=== PATIENT | female | born 1950 | race Caucasian/White ===

== ENCOUNTER 2024-02-21 07:17 | Day surgery (SDC) | payer MEDICARE, BC, OTHER ==
[~2024-02-21] VITALS: Ht 160 cm; Wt 52.6 kg
[2024-02-21] MEDS ORDERED: VITA-148 PO (07:43)
[2024-02-21] MEDS ORDERED: ASCO250T20 PO (07:43)
[2024-02-21] MEDS ORDERED: OMEP10CASR PO (07:43)
[2024-02-21] MEDS ORDERED: VITATAB73 PO (07:43)
[2024-02-21] MEDS ORDERED: ROSU40TA63 PO (07:43)
[2024-02-21] MEDS ORDERED: FERR325T3 PO (07:43)
[2024-02-21] MEDS ORDERED: CO Q200C10 PO (07:43)
[2024-02-21] MEDS ORDERED: CVS1CHW58 PO (07:43)
[2024-02-21] MEDS ORDERED: OMEG10002 PO (07:43)
[2024-02-21] MEDS ORDERED: BUPR-70 PO (07:43)
[2024-02-21] MEDS ORDERED: CYCL-707 PO (07:43)
[2024-02-21] MEDS ORDERED: ACET1TAB37 PO (07:44)
[2024-02-21] MEDS ORDERED: [UNRECOGNIZED DRUG - OTHER] PO (07:44)
[2024-02-21] MEDS ORDERED: MIDAZOLAM INJ 2MG/2ML VIAL As Ordered ONE (07:49)
[2024-02-21] MEDS ORDERED: fentaNYL 100 MCG/2 ML INJECTION As Ordered ONE (07:49)
[2024-02-21] MEDS ORDERED: LIDOCAINE 3.5 % 1ML OPHTH TOPICAL GEL As Ordered ONE (08:06)
[2024-02-21] MEDS: LIDOCAINE 3.5 % 1ML OPHTH TOPICAL GEL OU ONE (08:12)
[2024-02-21] MEDS: LIDOCAINE 2% W/EPINEPHRINE 20ML VIAL **PRES FREE As Ordered ONE (08:22)
[2024-02-21] MEDS: TOBRADEX OPHTH OINT 3.5 GM As Ordered ONE (08:23)
[2024-02-21] MEDS: mitoMYcin 0.2 MG/VIAL KIT FOR OPHTHALMIC USE As Ordered ONE (08:23)
[2024-02-21] MEDS: LIDOCAINE 1% SDV 5ML VIAL As Ordered ONE (08:24)
[2024-02-21 08:40] VITALS: BP 130/67; TEMP 96.4; O2SAT 98
== END 2024-02-21 08:59 | disposition home or self-care (01) ==
LOC: M SDC 07:17
PROVIDERS: ATTEND Ophthalmology
DX: H40.812 Glaucoma with increased episcleral venous pressure, left eye (principal)
CPT/HCPCS: 66183; C1783; J2250; J3010; J7315

== ENCOUNTER 2024-11-19 09:38 | Day surgery (SDC) | payer MEDICARE, BC ==
[~2024-11-19] VITALS: Ht 157.5 cm; Wt 52.8 kg
[~2024-11-19 09:38] MED LIST: ACET1TAB37 PO; ASCO250T20 PO; BENZ200C70 PO; BUPR-70 PO; CO Q200C10 PO; CVS1CHW58 PO; CYCL-707 PO; FERR325T3 PO; LEVO50TA5 PO; MELA10TA2 PO; OMEG10002 PO; OMEP10CASR PO; PHENYLEPHRINE 10% OPHTH SOL 5ML OS PRN; ROPI0.5T33 PO; ROSU40TA81 PO; VITA-148 PO; VITATAB73 PO; [UNRECOGNIZED DRUG - OTHER] PO
[2024-11-19] MEDS: LIDOCAINE 3.5 % 1ML OPHTH TOPICAL GEL OU ONE (10:00)
[2024-11-19] MEDS: OFLOXACIN 0.3 % (OCUFLOX) OPTH SOL 5ML OS ONE (10:00)
[2024-11-19] MEDS: PHENYLEPHRINE 2.5% OPHTH SOL 2ML OS SCH (11:11)
[2024-11-19] MEDS: TROPICAMIDE 1% OPHTH SOLN 15ML OS SCH (11:11)
[2024-11-19] MEDS: CYCLOPENTOLATE 1% OPHTH SOLN 2ML BTL OS SCH (11:11)
[2024-11-19] MEDS ORDERED: MIDAZOLAM INJ 2MG/2ML VIAL As Ordered ONE (11:12)
[2024-11-19] MEDS ORDERED: fentaNYL 100 MCG/2 ML INJECTION As Ordered ONE (11:12)
[2024-11-19] MEDS: BSS IRRIG/VANCO(10MG)/TOBRA(5MG)/EPINEPH(1:1000-0.5CC)500ML BAG-ORONLY As Ordered ONE (11:56)
[2024-11-19] MEDS: LIDOCAINE 1% SDV 5ML VIAL As Ordered ONE (11:56)
[2024-11-19] MEDS: ACETYLCHOLINE OPHTH SOLN 1% 2ML (MIOCHOL-E) As Ordered ONE (12:01)
[2024-11-19] MEDS: DUOVISC (0.50ML VISCOAT/0.85ML PROVISC) OPHTH KIT As Ordered ONE (12:03)
[2024-11-19] MEDS: CEFUROXIME 1MG/0.1ML INTRACAMERAL INJ As Ordered ONE (12:32)
[2024-11-19] MEDS ORDERED: TOBRADEX OPHTH OINT 3.5 GM As Ordered ONE (12:34)
[2024-11-19 12:44] VITALS: BP 151/73; TEMP 97.2; O2SAT 92
[2024-12-02] MEDS ORDERED: PREDOPD (15:21)
[2024-12-02] MEDS ORDERED: B-12100010 PO (16:34)
== END 2024-11-19 13:11 | disposition home or self-care (01) ==
LOC: M SDC 09:38
PROVIDERS: ATTEND Ophthalmology
DX: T85.22XA Displacement of intraocular lens, initial encounter (principal); Y77.2 Prosthetic and other implants, materials and accessory ophthalmic devices associated with adverse incidents; E03.9 Hypothyroidism, unspecified; I25.10 Atherosclerotic heart disease of native coronary artery without angina pectoris; J44.9 Chronic obstructive pulmonary disease, unspecified; K21.9 Gastro-esophageal reflux disease without esophagitis; F41.9 Anxiety disorder, unspecified; Z79.899 Other long term (current) drug therapy; Z87.891 Personal history of nicotine dependence; Z79.890 Hormone replacement therapy
CPT/HCPCS: 66986; J0697; J2250; J3010; V2632

== ENCOUNTER 2024-12-10 06:10 | Day surgery (SDC) | payer MEDICARE, BC ==
[~2024-12-10] VITALS: Ht 160 cm; Wt 54.4 kg
[~2024-12-10 06:10] MED LIST changes: +B-12100010 PO; +PREDOPD
[2024-12-10] MEDS: ACETYLCHOLINE OPHTH SOLN 1% 2ML (MIOCHOL-E) As Ordered ONE (06:40)
[2024-12-10] MEDS ORDERED: fentaNYL 100 MCG/2 ML INJECTION As Ordered ONE (06:46)
[2024-12-10] MEDS ORDERED: MIDAZOLAM INJ 2MG/2ML VIAL As Ordered ONE (06:46)
[2024-12-10] MEDS ORDERED: TROPICAMIDE 1% OPHTH SOLN 15ML OS SCH (07:00)
[2024-12-10] MEDS: OFLOXACIN 0.3 % (OCUFLOX) OPTH SOL 5ML OS ONE (07:00)
[2024-12-10] MEDS ORDERED: PHENYLEPHRINE 2.5% OPHTH SOL 2ML OS SCH (07:00)
[2024-12-10] MEDS ORDERED: CYCLOPENTOLATE 1% OPHTH SOLN 2ML BTL OS SCH (07:00)
[2024-12-10] MEDS: POVIDONE-IODINE 5% OPHTH PREP SOL 30ML As Ordered ONE (08:11)
[2024-12-10] MEDS: LIDOCAINE 1% SDV 5ML VIAL As Ordered ONE (08:12)
[2024-12-10] MEDS: LIDOCAINE 3.5 % 1ML OPHTH TOPICAL GEL OU ONE (08:19)
[2024-12-10] MEDS: BSS IRRIG/VANCO(10MG)/TOBRA(5MG)/EPINEPH(1:1000-0.5CC)500ML BAG-ORONLY As Ordered ONE (09:01)
[2024-12-10] MEDS: CEFUROXIME 1MG/0.1ML INTRACAMERAL INJ As Ordered ONE (09:04)
[2024-12-10] MEDS: DUOVISC (0.50ML VISCOAT/0.85ML PROVISC) OPHTH KIT As Ordered ONE (09:17)
[2024-12-10] MEDS ORDERED: dexmedeTOMIDine (4MCG/ML)200MCG/50ML BTL (PRECEDEX) As Ordered ONE (09:30)
[2024-12-10] MEDS: TOBRADEX OPHTH OINT 3.5 GM As Ordered ONE (09:34)
[2024-12-10 10:13] VITALS: BP 169/94; TEMP 97.6; O2SAT 100
== END 2024-12-10 10:15 | disposition home or self-care (01) ==
LOC: M SDC 06:10
PROVIDERS: ATTEND Ophthalmology
DX: H20.052 Hypopyon, left eye (principal); I25.10 Atherosclerotic heart disease of native coronary artery without angina pectoris; E03.9 Hypothyroidism, unspecified; K21.9 Gastro-esophageal reflux disease without esophagitis; J44.9 Chronic obstructive pulmonary disease, unspecified; Z79.890 Hormone replacement therapy; Z79.899 Other long term (current) drug therapy; Z87.891 Personal history of nicotine dependence; Z90.49 Acquired absence of other specified parts of digestive tract
CPT/HCPCS: 65820; J0697; J2250; J3010

== ENCOUNTER → 2025-04-28 | Outpatient (CLI) | payer MEDICARE, BC ==
[~2025-04-28] MED LIST changes: +ACET-1592 PO; -ACET1TAB37 PO; +METHACHOLINE KIT (6 VIAL.NEB PREMIX) INH ONE; -PHENYLEPHRINE 10% OPHTH SOL 5ML OS PRN
== END ==
LOC: M CARPUL 09:30
PROVIDERS: ATTEND Internal Medicine Pulmonary Disease
DX: R05.9 Cough, unspecified (principal)
CPT/HCPCS: 94070; 95070; J7674

== ENCOUNTER → 2025-05-02 | Outpatient (CLI) | payer MEDICARE, BC ==
[~2025-05-02] MED LIST changes: -METHACHOLINE KIT (6 VIAL.NEB PREMIX) INH ONE
[2025-05-02 12:00] LABS: BASO # 0.0 10^3/uL (0.0-0.2); BASO % 0.5 % (0.0-1.0); EOS # 0.0 10^3/uL (0.0-0.5); EOS % 0.0 % (0.0-3.0); LYMPH # 0.9 10^3/uL (1.5-5.0); LYMPH % 10.2 % (24.0-44.0); MONO # 0.6 10^3/uL (0.0-0.8); MONO % 7.2 % (2.0-8.0); NEUTROPHILS # 6.9 10^3/uL (1.5-8.5); NEUTROPHILS % 81.7 % (36.0-66.0); PLATELET COUNT, AUTOMATED 410 10^3/uL (150-450)
[2025-05-02 12:04] LABS: ERYTHROCYTE SEDIMENTATION RATE 31 mm/hr (0-30)
[2025-05-02 13:09] LABS: ALT/SGPT 14 U/L (7.0-40); AST/SGOT 15 U/L (<34); C REACTIVE PROTEIN QUANTITATIV 1.15 MG/DL (<1.0); CALCIUM LEVEL 8.6 MG/DL (8.3-10.6); CARBON DIOXIDE LEVEL 31 MMOL/L (20-31); CHLORIDE LEVEL 99 MMOL/L (98-107); CREATININE FOR GFR 0.85 MG/DL (0.55-1.30); GLOMERULAR FILTRATION RATE 72.3 (>39); POTASSIUM SERUM 4.0 MMOL/L (3.5-5.1); RHEUMATOID FACTOR QUANT < 3.5 IU/ML (<14); SODIUM LEVEL 139 MMOL/L (136-145)
[2025-05-02 13:11] LABS: FREE T4 1.34 NG/DL (0.89-1.76)
== END ==
LOC: M LAB 10:42
PROVIDERS: ATTEND Physician Assistant
DX: I31.39 Other pericardial effusion (noninflammatory) (principal); Z79.899 Other long term (current) drug therapy

== ENCOUNTER → 2025-05-05 | Outpatient (CLI) | payer MEDICARE, BC | LOC: M CARPUL 16:58 | PROVIDERS: ATTEND Physician Assistant | DX: I31.39 Other pericardial effusion (noninflammatory) (principal) ==

== ENCOUNTER → 2025-06-24 | Outpatient (CLI) | payer MEDICARE, BC | LOC: M RAD 14:04 | PROVIDERS: ATTEND Physician Assistant | DX: I65.23 Occlusion and stenosis of bilateral carotid arteries (principal) ==